=== PATIENT | female | born 1930 | race Caucasian/White ===

== ENCOUNTER → 2016-09-23 | Day surgery (SDC) | payer MEDICARE ==
[~2016-09-23] VITALS: Ht 165.1 cm; Wt 68.0 kg
[~2016-09-23] MED LIST: ACET325T PO; ASPI1TAB69 PO; BRIM0.2S4 EACH EYE; CHOL50008 PO; CYCLOPENTOLATE HCL 1% OPHT SOLN 2 ML BTL ONE; HYALURONIDASE/LIDOCAINE/EPINEPHRINE/BUPIVACAINE 6 ML SYR ONE; LIDOCAINE HCL 1% 30 ML VIAL ONE; METO25TA3 PO; MIDAZOLAM HCL 2 MG/2 ML VIAL ONE; MULT-120 PO; OCUF0.3D RIGHT EYE; OMEG12002 PO; OMNI1SUS RIGHT EYE; PHENYLEPHRINE HCL 10% OPTH SOLN 5 ML BTL ONE; PROPARACAINE HCL 0.5% OPHT SOLN 15 ML BTL ONE; PROPOFOL 200 MG/20 ML AMP ONE; SODIUM CHLORID 0.9% 500 ML INJ 500 ML ONE; TROPICAMIDE 1% OPHT SOLN 15 ML BTL ONE
[2016-09-23 08:15] VITALS: BP 196/92; PULSE 75; RESP 16; TEMP 98.8; O2SAT 97
[2016-09-23 08:20] VITALS: PULSE 75
[2016-09-23] MEDS: FLURBIPROFEN 0.03% OPHT SOLN 2.5 ML BTL ONE (08:20)
[2016-09-23 08:52] VITALS: PULSE 75
[2016-09-23] MEDS: TOBRAMYCIN/DEXAMETHASONE OPTH OINT 3.5 GM TUBE ONE ×2 (09:51→10:01)
[2016-09-23 10:30] VITALS: BP 145/79; PULSE 78; RESP 14; O2SAT 99
--- NOTE | 2016-09-23 10:42 | MP ---
cc: BRIAN VOGT M.D. [facility] #: [id number] DATE: September 23, 2016 PREOPERATIVE DIAGNOSIS: Visually significant cataract left eye. POSTOPERATIVE DIAGNOSIS: Visually significant cataract left eye. OPERATION: Phacoemulsification with posterior chamber lens implantation, left eye. SURGEON: Brian Vogt MD ANESTHESIA: Retrobulbar with MAC. COMPLICATIONS: None. PROCEDURE: After informed consent was obtained, the patient was brought into the operative suite and placed on appropriate monitors by the Anesthesia Service. The patient had received a prior retrobulbar injection of local anesthetic by the Anesthesia Service in the holding area. The patient's operative eye was then prepped and draped in the usual sterile fashion. A wire lid speculum was placed. A paracentesis incision was made in the peripheral cornea with a 1 mm olivier keratome. The anterior chamber was filled with viscoelastic. The anterior chamber was then entered through a stepped, clear corneal incision using a sharp 3 mm olivier keratome. A circular tear capsulorrhexis was then made with a bent needle cystitome. Following hydrodissection of the lens nucleus with balanced saline, phacoemulsification of the nucleus was performed using a modified chopping technique. The remaining cortex was removed with irrigation/aspiration. The prior two procedures were both performed using the handpieces of the [employer] phaco unit. The capsular bag was then filled with viscoelastic. The intraocular lens was then injected into the capsular bag and positioned. The type of intraocular lens and its power can be found elsewhere in this chart. The remaining viscoelastic was then removed from the anterior chamber with the IA handpiece. The anterior chamber was reformed with balanced saline. The wound was then closed securely with stromal hydration. It was found to be watertight to an intraocular pressure of at least 30 mmHg by palpation. A small amount of balanced salt solution was then removed through the paracentesis site and the intraocular pressure at the end of the case was approximately 20 by palpation. All drapes were then removed. TobraDex ointment was then placed in the eye, which was closed beneath a semi-pressure patch dressing. The patient tolerated this procedure well and left the operating room awake and alert. The patient is to follow-up in my office in the morning. MD JACINDA Lezama/CRISTOPHER /10:10 AM /10:41 AM
== END | disposition home or self-care (01) ==
LOC: CSDC 06:56
PROVIDERS: ATTEND Optometrist Occupational Vision
DX: H25.812 Combined forms of age-related cataract, left eye (principal); H52.202 Unspecified astigmatism, left eye
CPT/HCPCS: 00142; 66984; J2250; J7040; V2632